=== PATIENT | female | born 1975 | race African-American/Black ===

== ENCOUNTER → 2016-09-12 | Outpatient (CLI) | payer BC ==
[2014-12-17 22:00] VITALS: BP 139/95
--- NOTE | 2016-09-12 12:56 | RAD ---
HISTORY: Facial trauma left side of face, swelling Study: Facial bones four view Comparison: None Findings: There is no definite evidence for mandibular maxillofacial or orbital fracture. The nasal septum is midline. The sinuses are clear. However, if suspicion for facial fracture remains high maxillofacial CT could be obtained. IMPRESSION: No fracture identified Reported By:
== END ==
LOC: RAD 12:15
PROVIDERS: ATTEND Nurse Practitioner Family
DX: R51 Headache (principal); R22.0 Localized swelling, mass and lump, head
CPT/HCPCS: 70150